=== PATIENT | female | born 1970 | race African-American/Black ===

== ENCOUNTER 2022-07-17 15:32 | Emergency (ER) | payer MEDICAID ==
[~2022-07-17] VITALS: Ht 167.6 cm; Wt 80.0 kg
[2022-07-17 15:47] VITALS: BP 148/59
== END 2022-07-17 18:55 | disposition left against medical advice (07) ==
LOC: ER 15:32
DX: Z53.21 Procedure and treatment not carried out due to patient leaving prior to being seen by health care provider (principal)
CPT/HCPCS: 82962

== ENCOUNTER 2022-07-18 13:08 | Emergency (ER) | payer MEDICAID ==
[~2022-07-18] VITALS: Ht 172.7 cm; Wt 79.0 kg
[2022-07-18 17:23] VITALS: BP 119/62
== END 2022-07-18 17:25 | disposition home or self-care (01) ==
LOC: ER 13:08
DX: R68.89 Other general symptoms and signs (principal); J45.909 Unspecified asthma, uncomplicated
CPT/HCPCS: 99281

== ENCOUNTER 2022-10-28 13:42 | Emergency (ER) | payer BC, MEDICAID ==
[~2022-10-28] VITALS: Ht 167.6 cm; Wt 82.0 kg
[2022-10-28 13:46] VITALS: BP 134/67; PULSE 99; RESP 16; TEMP 98.8; O2SAT 100
[2022-10-28 14:21] LABS: BASOPHILS % 0.3 % (0.0-2.0); EOSINOPHILS % 2.5 % (0.0-5.0); HEMOGLOBIN. 13.1 g/dL (12.0-16.0); MONOCYTES % 4.9 % (2.0-8.0); NEUTROPHILS % 52.3 % (40.0-76.0); PLATELET 200 x1000/uL (130-400); RED BLOOD CELL COUNT 4.22 mill/uL (4.2-5.4); RED CELL DISTRIBUTION WIDTH 13.7 % (11.6-14.6)
[2022-10-28 14:23] LABS: CHLORIDE 109 mEq/L (98-107)
== END 2022-10-29 00:10 | disposition home or self-care (01) ==
LOC: ER 13:42 → MERGE 13:42 → ER 10-29 00:10
DX: R07.89 Other chest pain (principal); J45.909 Unspecified asthma, uncomplicated; Z98.890 Other specified postprocedural states; Z88.6 Allergy status to analgesic agent
CPT/HCPCS: 36415; 71045; 80053; 84484; 85025; 93005; 99285